=== PATIENT | female | born 1985 | race African-American/Black ===

== ENCOUNTER 2021-04-14 10:46 | Emergency (ER) | payer BC ==
[~2021-04-14] VITALS: Ht 157.5 cm; Wt 53.6 kg
[2021-04-14 11:39] VITALS: BP 158/96
== END 2021-04-14 13:12 | disposition home or self-care (01) ==
LOC: ED 11:31
DX: B00.2 Herpesviral gingivostomatitis and pharyngotonsillitis (principal)
CPT/HCPCS: 99282; 99283